=== PATIENT | female | born 1950 | race Caucasian/White ===

== ENCOUNTER → 2024-04-29 09:50 | Outpatient (REF) | payer MEDICARE, SELFPAY | LOC: RAD 09:50 | PROVIDERS: ATTENDING PHYSICIAN Surgery Vascular Surgery | DX: I65.23 Occlusion and stenosis of bilateral carotid arteries (principal) | CPT/HCPCS: 93880 ==

== ENCOUNTER → 2025-04-29 09:29 | Outpatient (REF) | payer MEDICARE, SELFPAY | LOC: RAD 09:29 | PROVIDERS: ATTENDING PHYSICIAN Surgery Vascular Surgery | DX: I77.9 Disorder of arteries and arterioles, unspecified (principal); I65.22 Occlusion and stenosis of left carotid artery | CPT/HCPCS: 93880 ==

== ENCOUNTER → 2025-05-05 08:43 | Outpatient (REF) | payer MEDICARE, SELFPAY | LOC: HWRCS 08:43 | PROVIDERS: ATTENDING PHYSICIAN Internal Medicine Cardiovascular Disease | DX: R01.1 Cardiac murmur, unspecified (principal) | CPT/HCPCS: 93306 ==